=== PATIENT | female | born 1955 | race Caucasian/White ===

== ENCOUNTER → 2020-11-24 | Outpatient (CLI) | payer OTHER | LOC: KOH-I 14:29 | DX: M19.90 Unspecified osteoarthritis, unspecified site (principal) | CPT/HCPCS: 73100; 73120 ==

== ENCOUNTER → 2021-06-26 | Outpatient (CLI) | payer MEDICARE | LOC: KOH-I 11:27 | DX: M79.671 Pain in right foot (principal); M79.89 Other specified soft tissue disorders | CPT/HCPCS: 73630 ==

== ENCOUNTER → 2021-11-25 | Outpatient (CLI) | payer MEDICARE | LOC: EXRD 13:14 | DX: N18.32 Chronic kidney disease, stage 3b (principal) | CPT/HCPCS: 76775 ==

== ENCOUNTER → 2022-01-14 | Outpatient (CLI) | payer MEDICARE | LOC: LAB 13:47 | DX: G70.00 Myasthenia gravis without (acute) exacerbation (principal) | CPT/HCPCS: 36415; 82565; 83519; 84520 ==

== ENCOUNTER → 2022-02-10 | Outpatient (CLI) | payer MEDICARE | LOC: MRI 09:49 | DX: H57.02 Anisocoria (principal); G90.2 Horner's syndrome; H57.03 Miosis; G31.9 Degenerative disease of nervous system, unspecified; R90.82 White matter disease, unspecified | CPT/HCPCS: 70553; A9577 ==